=== PATIENT | female | born 1965 | race Caucasian/White ===

== ENCOUNTER 2019-10-19 08:45 | Emergency (ER) | payer OTHER ==
[~2019-10-19] VITALS: Ht 180.3 cm; Wt 67.1 kg
[2019-10-19 09:50] LABS: BASOPHILS ABSOLUTE AUTO 0.01 K/mm3 (0.00-0.23); BASOPHILS PERCENT AUTO 0 % (0-2); EOSINOPHILS PERCENT AUTO 0 % (0-6); Hematocrit 41.2 % (33.0-51.0); Hemoglobin 13.4 g/dL (11.5-16.0); IMMATURE GRAN ABSOLUTE AUTO 0.01 K/mm3 (0.00-0.10); IMMATURE GRAN PERCENT AUTO 0 % (0-1); LYMPHOCYTES ABSOLUTE AUTO 0.32 K/mm3 (0.84-5.20); LYMPHOCYTES PERCENT AUTO 6 % (21-46); MONOCYTES ABSOLUTE AUTO 0.02 K/mm3 (0.16-1.47); MONOCYTES PERCENT AUTO 0 % (4-13); Mean Corpuscular HGB 28.9 pg (26.0-34.0); Mean Corpuscular HGB Conc 32.5 g/dL (31.5-36.5); Mean Corpuscular Volume 89 fL (80-100); Mean Platelet Volume 10.9 fL (9.1-12.4); NEUTROPHILS ABSOLUTE AUTO 4.73 K/mm3 (1.96-9.15); NEUTROPHILS PERCENT AUTO 93 % (41-73); Platelet Count 147 K/mm3 (150-400); RDW Standard Deviation 42.5 fL (35.1-46.3); Red Blood Cell Count 4.64 M/mm3 (3.80-5.20); White Blood Cell Count 5.09 K/mm3 (4.00-11.30)
[2019-10-19 10:13] LABS: Alanine Aminotransfer (ALT/SGP 23 U/L (12-78); Albumin, Blood 3.8 g/dL (3.4-5.0); Alk Phos 134 U/L (50-136); Anion Gap 8 mmol/L (6-16); Aspartate Aminotrans (AST/SGOT 23 U/L (12-37); Bilirubin, Total 1.3 mg/dL (0.1-1.0); Blood Urea Nitrogen 20 mg/dL (8-24); Bun/Creatinine Ratio 23.3 (12.0-20.0); CO2, Blood 28 mmol/L (21-32); Calcium, Blood 9.4 mg/dL (8.5-10.1); Chloride, Blood 101 mmol/L (98-108); Creatinine, Blood 0.86 mg/dL (0.40-1.00); Glomerular Filtration Rate >60 (60-); Glucose, Blood 106 mg/dL (70-99); Potassium, Blood 3.4 mmol/L (3.5-5.5); Sodium, Blood 137 mmol/L (136-145); Total Protein, Blood 7.8 g/dL (6.4-8.2)
[2019-10-19 10:53] LABS: Source, Urine Clean Catch
[2019-10-19 11:14] LABS: Bilirubin, Urine Neg (Neg); Blood, Urine 5+ (Neg); Glucose Qualitative, Urine Neg (Neg); Ketones, Urine 1+ (Neg); Leukocyte Esterase, Urine 3+ (Neg); Nitrite, Urine Pos (Neg); Protein, Urine 2+ (Neg); Urobilinogen, Urine NORM (Normal)
[2019-10-19 12:11] LABS: Appearance, Urine Hazy (Clear); Color, Urine Yellow (P-Yellow)
[2019-10-19 12:12] LABS: White Blood Cells, Urine TNTC /hpf (0-5)
[2019-10-19 12:13] LABS: Bacteria Many /hpf; Squamous Epithelial Cells Few /hpf (Few)
== END 2019-10-19 16:04 | disposition short-term general hospital (02) ==
LOC: ER 08:45
PROVIDERS: Emergency Medicine
DX: A41.9 Sepsis, unspecified organism (principal); N20.2 Calculus of kidney with calculus of ureter; N12 Tubulo-interstitial nephritis, not specified as acute or chronic
CPT/HCPCS: 36415; 76770; 80053; 81001; 83605; 85025; 87040; 87077; 87086; 87186; 96361; 96365; 96375; 99284-25; J0696; J1170; J2405; J7030; J7120

== ENCOUNTER → 2024-07-17 | Outpatient (CLI) | payer OTHER ==
[~2024-07-17] MED LIST: CREON DR 24,001 EACH PO
[2024-07-24 15:56] LABS: CALCIUM, URINE - PER 24H 136 mg/d (100-250); CALCIUM, URINE - PER VOLUME 4.4 mg/dL; CHLORIDE, URINE - PER 24H 149 mmol/d (140-250); CHLORIDE, URINE - PER VOLUME 48 mmol/L; CITRIC ACID, URINE - PER 24H 369 mg/d (320-1240); CITRIC ACID,URINE - PER VOLUME 119 mg/L; CREATININE, URINE - PER 24H 961 mg/d (500-1400); CREATININE, URINE - PER VOLUME 31 mg/dL; HOURS COLLECTED 24 hr; MAGNESIUM, URINE - PER VOLUME 4.1 mg/dL; MAGNESIUM, URINE PER 24H 127 mg/d (12-199); OXALATE, URINE - PER 24H 96 mg/d (13-40); OXALATE, URINE - PER VOLUME 31 mg/L; PH, URINE 5.68 (5.00-7.50); PHOSPHORUS, URINE - PER 24H 1085 mg/d (400-1300); PHOSPHORUS, URINE - PER VOLUME 35 mg/dL; POTASSIUM, URINE - PER 24H 59 mmol/d (25-125); POTASSIUM, URINE - PER VOLUME 19 mmol/L; SODIUM, URINE - PER 24H 149 mmol/d (51-286); SODIUM, URINE - PER VOLUME 48 mmol/L; SULFATE, URINE - PER 24H < 5 mmol/d (6-30); SULFATE, URINE - PER VOLUME <5 mmol/L; TOTAL VOLUME 3100 mL; URIC ACID, URINE - PER 24H 434 mg/d (250-750); URINE SUPERSATURATION INTERP Abnormal; URINE SUPERSATURATION, CAHPO4 0.37; URINE SUPERSATURATION, CAOX 6.69
== END | disposition home or self-care (01) ==
LOC: LAB 06:00 → LAB SHORT 06:00
PROVIDERS: Urology
DX: N20.0 Calculus of kidney (principal)
CPT/HCPCS: 81003; 81050; 82131; 82140; 82340; 82436; 82507; 82570; 83735; 83935; 83945; 84105; 84133; 84300; 84392; 84560